=== PATIENT | female | born 1960 | race Caucasian/White ===

== ENCOUNTER 2021-12-30 01:00 | Emergency (ER) | payer OTHER ==
[~2021-12-30] VITALS: Ht 154.9 cm; Wt 77.1 kg
[2021-12-30 01:05] VITALS: BP 140/71
--- NOTE | 2021-12-30 01:17 | NUR ---
PT TO BED 01.
--- NOTE | 2021-12-30 01:18 | NUR ---
RECEIVED IN BED 1 WITH C/O SOB X 1 WEEK. PT HAS HAD RX OF Z-RONEN pmhx cholesterol, htn allergies codeine, norco, pcn, clendamycin
[2021-12-30] MEDS ORDERED: ALBUTEROL 0.083% 2.5 MG/3 ML NEBU INH ONE (01:20)
[2021-12-30] MEDS ORDERED: predniSONE 20 MG TAB PO ONE (01:20)
[2021-12-30 03:34] LABS: BASOPHILS % (AUTO) 0.4 % (0.0-2.0); EOSINOPHILS % (AUTO) 0.1 % (0.0-4.0); HEMATOCRIT 39.1 % (36-48); HEMOGLOBIN 13.1 g/dL (12.0-16.0); LYMPHOCYTES % (AUTO) 8.5 % (20.5-51.1); MEAN CORPUSCULAR HEMOGLOBIN 31 pg (27-31); MEAN CORPUSCULAR HGB CONC 34 g/dL (33-37); MEAN CORPUSCULAR VOLUME 91.5 fL (80-94); MONOCYTES # (AUTO) 0.8 K/uL (0.8-1.0); MONOCYTES % (AUTO) 6.7 % (1.7-9.3); NEUTROPHILS # (AUTO) 9.7 K/uL (1.8-7.7); NEUTROPHILS % (AUTO) 84.3 % (42.2-75.2); PLATELET COUNT (AUTO) 236 K/uL (140-450); RED BLOOD CELL COUNT(AUTO) 4.27 MIL/uL (4.20-5.40); RED CELL DISTRIBUTION WIDTH 12.8 % (11.6-13.7); WHITE BLOOD COUNT (AUTO) 11.5 K/uL (4.8-10.8)
[2021-12-30 03:53] LABS: ALBUMIN 3.5 g/dL (3.4-5.0); CARBON DIOXIDE 27.2 mmol/L (21-32); CREATININE 0.8 mg/dL (0.6-1.3); POTASSIUM 4.2 mmol/L (3.5-5.1); TOTAL BILIRUBIN 0.5 mg/dL (0.0-1.0)
--- NOTE | 2021-12-30 04:14 | NUR ---
ambulated to br with steady gait
[2021-12-30 06:04] VITALS: BP 140/71
[2021-12-30] MEDS ORDERED: NAPR-1717 PO (06:04)
--- NOTE | 2021-12-30 06:04 | NUR ---
Patient discharged with v/s stable. Written and verbal after care instructions given and explained. Patient alert, oriented and verbalized understanding of instructions. Ambulatory with steady gait. All questions addressed prior to discharge. ID band removed. Patient advised to follow up with PMD. Rx of NAPROSYN & INHALER given. Patient educated on indication of medication including possible reaction and side effects. Opportunity to ask questions provided and answered.
[2021-12-30] MEDS ORDERED: ALBU0.0912 IH (06:07)
== END 2021-12-30 06:04 | disposition home or self-care (01) ==
LOC: MED 01:00
DX: R07.89 Other chest pain (principal); R09.1 Pleurisy; Z20.822 Contact with and (suspected) exposure to COVID-19; Z88.0 Allergy status to penicillin; Z88.5 Allergy status to narcotic agent; Z88.8 Allergy status to other drugs, medicaments and biological substances
CPT/HCPCS: 36415; 71045; 80053; 83605; 83880; 84484; 85025; 85379; 87040; 87426; 87804; 93005; 94640; 99285; J7512; J7613; Q0092